=== PATIENT | male | born 1995 ===

== ENCOUNTER 2025-04-29 18:24 | Inpatient (IN) | payer BC ==
[~2025-04-29] VITALS: Ht 188 cm; Wt 99.2 kg
[2025-04-29] MEDS ORDERED: SULF-261 PO (18:47)
[2025-04-29] MEDS ORDERED: NABU-141 PO (18:47)
[2025-04-29] MEDS ORDERED: METH4TAB3 PO (18:47)
[2025-04-29] MEDS ORDERED: CLOT15CR75 TP (18:47)
[2025-04-29] MEDS ORDERED: ACET-3385 PO (18:47)
[2025-04-29 18:58] LABS: COVID AG,FIA SOURCE NASAL SWAB
[2025-04-29] MEDS: IBUPROFEN 600 MG TABLET PO ONE (18:58)
[2025-04-29] MEDS: ACETAMINOPHEN 500 MG TABLET PO ONE (18:59)
[2025-04-29 19:18] LABS: PLATELET COUNT (AUTO) 248 K/uL (150-450); RED BLOOD CELL COUNT(AUTO) 5.97 MIL/uL (4.50-5.90); RED CELL DISTRIBUTION WIDTH 12.9 % (11.5-14.5); WHITE BLOOD COUNT (AUTO) 14.7 K/uL (4.5-11.0)
[2025-04-29 19:18] LABS: INFLUENZA TYPE A NEGATIVE FOR TYPE A (NEGATIVE); INFLUENZA TYPE B NEGATIVE FOR TYPE B (NEGATIVE); SARS-COV2 (COVID) ANTIGEN,FIA Negative (Negative)
[2025-04-29 19:24] LABS: APPEARANCE,URINE CLEAR (CLEAR); GLUCOSE, URINE (UA) NEGATIVE (NEGATIVE); LEUKOCYTE ESTERASE ,URINE NEGATIVE (NEGATIVE); NITRATE,URINE NEGATIVE (NEGATIVE); OCCULT BLOOD,URINE NEGATIVE (NEGATIVE); SPECIFIC GRAVITIY, URINE 1.012 (1.003-1.030)
[2025-04-29 19:25] LABS: CALCIUM, TOTAL 9.0 mg/dL (8.8-10.5); CREATININE 1.25 mg/dL (0.60-1.30); GLOMERULAR FILTR. RATE CALC > 60 mL/min (>60); GLUCOSE,RANDOM 171 mg/dL (70-110); SODIUM SERUM 139 mmol/L (136-145); UREA NITROGEN, BLOOD 13 mg/dL (7-18)
[2025-04-29 19:38] LABS: SQUAMOUS EPITHELIAL CELL,UR Rare /LPF (None Seen)
[2025-04-29 19:42] LABS: PLATELET MORPHOLOGY COMMENT LARGE PLTS PRESENT; RBC MORPHOLOGY COMMENT NORMAL RBC MORPH
[2025-04-29] MEDS ORDERED: 0.9% SODIUM CHLORIDE 10 ML SYRINGE IVP PRN (21:30)
[2025-04-29] MEDS: SODIUM CHLORIDE 0.9% 2,900 ML IV ONE (21:59)
[2025-04-29] MEDS: CefTRIAXone 1 GM/DEXTROSE 50 ML IV ONE (22:01)
[2025-04-29] MEDS ORDERED: ONDANSETRON HCL 4 MG/2 ML VIAL IVP PRN (22:30)
[2025-04-29] MEDS: *CLINICAL-LEVOFLOXACIN IVPB DOSING CLINICAL ONE (22:40)
[2025-04-29 23:34] LABS: CREATININE,URINE RANDOM 63.2 mg/dL (30.0-125.0)
[2025-04-29] MEDS: LEVOFLOXACIN 750 MG/D5% WATER 150 ML IV SCH (23:38)
[2025-04-29 23:59] LABS: LACTIC ACID 2.7 mmol/L (0.4-2.0)
[2025-04-30] MEDS: HEPARIN SODIUM,PORCINE 5,000 UNITS/ML VIAL SQ SCH (00:42)
[2025-04-30] MEDS: RINGERS SOLUTION,LACTATED 1,000 ML IV SCH (00:42)
[2025-04-30] MEDS: ACETAMINOPHEN 325 MG TABLET PO PRN (00:51)
[2025-04-30 02:15] VITALS: BP 113/64; PULSE 111; RESP 18; TEMP 99.1; O2SAT 100
[2025-04-30 02:46] LABS: CREATINE KINASE, TOTAL ONLY 64 U/L (39-308)
[2025-04-30 06:42] LABS: PLATELET COUNT (AUTO) 218 K/uL (150-450); RED BLOOD CELL COUNT(AUTO) 4.75 MIL/uL (4.50-5.90); RED CELL DISTRIBUTION WIDTH 13.0 % (11.5-14.5); WHITE BLOOD COUNT (AUTO) 12.8 K/uL (4.5-11.0)
[2025-04-30 07:03] LABS: CALCIUM, TOTAL 7.7 mg/dL (8.8-10.5); CREATININE 1.29 mg/dL (0.60-1.30); GLOMERULAR FILTR. RATE CALC > 60 mL/min (>60); GLUCOSE,RANDOM 116 mg/dL (70-110); SODIUM SERUM 142 mmol/L (136-145); UREA NITROGEN, BLOOD 11 mg/dL (7-18)
[2025-04-30 08:00] VITALS: BP 105/57; PULSE 82; RESP 20; TEMP 98.6; O2SAT 99
[2025-04-30] MEDS: DOCUSATE SODIUM 100 MG CAPSULE PO SCH (08:12)
[2025-04-30] MEDS ORDERED: MAGNESIUM SULFATE 2 GM/WATER 50 ML IV PRN (08:30)
[2025-04-30] MEDS ORDERED: MAGNESIUM SULFATE 4 GM/WATER 100 ML IV PRN (08:30)
[2025-04-30] MEDS: DOXYCYCLINE HYCLATE 100 MG in DEXTROSE 5%-WATER 100 ML IV SCH (10:04)
[2025-04-30 11:28] VITALS: BP 122/68; PULSE 82; RESP 20; TEMP 97.9; O2SAT 100
[2025-04-30 15:32] VITALS: BP 112/57; PULSE 93; RESP 20; TEMP 100.6; O2SAT 98
[2025-04-30 16:23] LABS: ASPARTATE AMINOTRANSFERASE 13.0 U/L (15-37); TOTAL PROTEIN, SERUM 6.2 g/dL (6.4-8.2)
[2025-04-30 20:00] VITALS: BP 115/63; PULSE 88; RESP 18; TEMP 98.6; O2SAT 98
[2025-05-01 00:19] VITALS: BP 119/60; PULSE 65; RESP 17; TEMP 98.6; O2SAT 99
[2025-05-01] MEDS: MAGNESIUM OXIDE 400 MG TABLET PO PRN (00:27)
[2025-05-01 03:35] VITALS: BP 126/69; PULSE 84; RESP 18; TEMP 99.5; O2SAT 100
[2025-05-01 06:59] LABS: PLATELET COUNT (AUTO) 193 K/uL (150-450); RED BLOOD CELL COUNT(AUTO) 4.80 MIL/uL (4.50-5.90); RED CELL DISTRIBUTION WIDTH 13.1 % (11.5-14.5); WHITE BLOOD COUNT (AUTO) 6.2 K/uL (4.5-11.0)
[2025-05-01 08:03] VITALS: BP 118/79; PULSE 73; RESP 17; TEMP 98.4; O2SAT 98
[2025-05-01] MEDS: MAGNESIUM SULFATE 2 GM/WATER 50 ML IV ONE (10:47)
[2025-05-01] MEDS ORDERED: SODIUM CHLORIDE 0.9% 100 ML ONE (10:57)
[2025-05-01] MEDS ORDERED: IOHEXOL 350 MG/ML 100 ML VIAL ONE (10:57)
[2025-05-01 12:02] VITALS: BP 98/55; PULSE 71; RESP 17; TEMP 98.4; O2SAT 97
[2025-05-01 15:59] VITALS: BP 126/64; PULSE 75; RESP 17; TEMP 97.7; O2SAT 98
[2025-05-01 19:50] VITALS: BP 131/61; PULSE 78; RESP 18; TEMP 98.6; O2SAT 97
[2025-05-02 00:01] VITALS: BP 129/82; PULSE 60; RESP 17; TEMP 98.8; O2SAT 100
[2025-05-02 02:07] LABS: EPSTEIN-BARR TO EARLY(D)AG-IGG <9.0 U/mL (0.0-8.9)
[2025-05-02] MEDS ORDERED: PEG 400/HYPROMELLOSE/GLYCERIN 15 ML OPHTHALMIC SOLUTION OU PRN (02:15)
[2025-05-02 04:02] VITALS: BP 115/70; PULSE 62; RESP 18; TEMP 97.5; O2SAT 100
[2025-05-02 06:00] LABS: PLATELET COUNT (AUTO) 201 K/uL (150-450); RED BLOOD CELL COUNT(AUTO) 5.25 MIL/uL (4.50-5.90); RED CELL DISTRIBUTION WIDTH 12.6 % (11.5-14.5); WHITE BLOOD COUNT (AUTO) 5.9 K/uL (4.5-11.0)
[2025-05-02 06:16] LABS: CALCIUM, TOTAL 8.5 mg/dL (8.8-10.5); CREATININE 0.89 mg/dL (0.60-1.30); GLOMERULAR FILTR. RATE CALC > 60 mL/min (>60); GLUCOSE,RANDOM 98 mg/dL (70-110); SODIUM SERUM 143 mmol/L (136-145); UREA NITROGEN, BLOOD 11 mg/dL (7-18)
[2025-05-02 07:07] LABS: EPSTEIN-BARR VIRUS CAPSID IGM <36.0 U/mL (0.0-35.9)
[2025-05-02 08:07] LABS: RHEUMATOID FACTOR, REF LAB 11.3 IU/mL (<14.0)
[2025-05-02] MEDS: DiphenhydrAMINE/ZINC ACET 30 GM CREAM TP SCH (08:37)
[2025-05-02 09:22] VITALS: BP 124/73; PULSE 66; RESP 18; TEMP 98.4; O2SAT 100
[2025-05-02] MEDS ORDERED: LEVO750T68 PO (16:35)
[2025-05-02 17:09] VITALS: BP 121/78; PULSE 78; RESP 20; TEMP 98.4; O2SAT 97
== END 2025-05-02 18:40 | disposition home or self-care (01) | DRG 872 ==
LOC: EMS 18:24 → EDH 22:29 → 5S 04-30 01:51 → 6S 05-02 05:50
PROVIDERS: ADMIT Internal Medicine; ATTEND Internal Medicine
DX: A41.9 Sepsis, unspecified organism (principal); N17.9 Acute kidney failure, unspecified; N41.0 Acute prostatitis; E87.20 Acidosis, unspecified; L30.9 Dermatitis, unspecified; E66.9 Obesity, unspecified; R51.9 Headache, unspecified; Z88.1 Allergy status to other antibiotic agents; Z68.28 Body mass index [BMI] 28.0-28.9, adult; Z20.822 Contact with and (suspected) exposure to COVID-19
CPT/HCPCS: 71045; 71250; 71260; 72193; 74160; 76770; 80048; 80076; 81001; 82040; 82550; 82570; 83605; 83735; 84145; 84300; 85025; 85610; 85651; 86038; 86140; 86308; 86431; 86663; 86665; 87040; 87086; 87389; 87430; 87491; 87591; 87804; 93005; 93306; 96365; 96368; 99285; G0378; J0696; J1644; J1956; J3475; J3490; J7030; J7050; J7060; J7120; 36415-L1; 36415-TC